=== PATIENT | male | born 1995 | race African-American/Black ===

== ENCOUNTER 2025-05-03 08:32 | Outpatient (CLI) | payer BC | END 2025-05-03 08:33 | disposition home or self-care (01) | LOC: CSHSLEEP 08:32 | PROVIDERS: ATTEND Internal Medicine | DX: G47.33 Obstructive sleep apnea (adult) (pediatric) (principal); R53.83 Other fatigue; R06.83 Snoring; E66.9 Obesity, unspecified; Z68.38 Body mass index [BMI] 38.0-38.9, adult | CPT/HCPCS: 95811 ==